=== PATIENT | female | born 1955 | race Caucasian/White ===

== ENCOUNTER 2018-07-15 18:22 | Emergency (ER) | payer OTHER ==
[2018-07-15] MEDS ORDERED: ONDANSETRON 4 MG/2 ML VIAL ONE (18:49)
[2018-07-15] MEDS ORDERED: ONDANSETRON 4 MG/2 ML VIAL IVP ONE (18:49)
--- NOTE | 2018-07-15 18:49 | EDPHY ---
H & P Stated Complaint: R arm deformity Time Seen by Provider: 07/15/18 18:34 HPI/ROS: HPI: This is a 62-year-old female who presents with Chief Complaint: Right arm deformed Location: Right wrist Quality: Injury Duration: 1 hr prior to arrival Signs and Symptoms: No bleeding, no radiation, no numbness, no weakness, no tingling, no incontinence, + decreased range of motion, no swelling, + pain, no fever Timing: Acute Severity: Moderate Context: Patient is right-hand dominant, presents with accidentally falling backwards and landing on her right hand. She reports that she felt immediate pain on the radial side of her right wrist with obvious deformity. She has tried not to move and stable iced it with her belt. Denies LOC/head injury/neck pain/dizziness/nausea/vomiting/amnesia. She was ambulatory at the scene and her witnessed the fall. She was able to hike down the trail and drove her to the emergency room. They are here in [place] visiting from [place], [place]. They are flying back home tomorrow. Modifying Factors: Stabilization Comment: ROS: A comprehensive 10 system review of systems is otherwise negative aside from elements mentioned in the history of present illness. MEDICAL/SURGICAL/SOCIAL HISTORY: Medical history: Generally healthy. Does not take any regular medications. Surgical history: Right knee arthroscopy, parathyroidectomy Social history: , nonsmoker CONSTITUTIONAL: Extremely polite and cooperative elderly white female who appears younger than stated age, awake and alert, no obvious distress HEENT: Atraumatic and normocephalic. NECK: supple, no midline tenderness, flexion 45 degrees, extension 45 degrees, right and left lateral flexion 45 degrees. No meningismus. Cardiovascular: Normal S1/S2, regular rate, regular rhythm, without murmur rub or gallop. PULMONARY/CHEST: Symmetrical and nontender. no crepitus. Clear to auscultation bilaterally. Good air movement. No accessory muscle usage. ABDOMEN: Soft, nondistended, nontender, no ecchymosis. EXTREMITIES: 2/2 pulses, strength 5/5, right WRIST: Radial deformity noted; decreased extension, flexion, radial deviation, ulnar deviation secondary to pain. Able to wiggle all 5 fingers with good capillary refill. DIP/PIP/MCP flexion/extension intact with good light touch sensation. no deformities, no clubbing, no cyanosis or edema. NEUROLOGICAL: no focal neuro deficits. GCS 15. Light touch sensation intact. SKIN: Warm and dry, no erythema. no rash. Source: Patient Exam Limitations: No limitations - Personal History Current Tetanus/Diphtheria Vaccine: Unsure Current Tetanus Diphtheria and Acellular Pertussis (TDAP): Unsure - Medical/Surgical History Hx Asthma: No Hx Chronic Respiratory Disease: No Hx Diabetes: No Hx Cardiac Disease: No Hx Renal Disease: No Hx Cirrhosis: No Hx Alcoholism: No Hx HIV/AIDS: No Hx Splenectomy or Spleen Trauma: No Other PMH: R knee surgery, parathyroidectomy, - Social History Smoking Status: Never smoked Constitutional: Initial Vital Signs Temperature (C) 36.7 C 07/15/18 18:27 Heart Rate 66 07/15/18 18:27 Respiratory Rate 16 07/15/18 18:27 Blood Pressure 148/103 H 07/15/18 18:27 O2 Sat (%) 96 07/15/18 18:27 O2 Delivery Mode Room Air Allergies/Adverse Reactions: No Known Allergies Allergy (Unverified 07/15/18 18:27) Home Medications: Medication Instructions Recorded oxyCODONE/APAP 5/325 [Percocet 1 - 2 tab PO Q4H PRN #20 tab 07/15/18 5/325 (*)] Medical Decision Making - Diagnostics Imaging Results: Imaging Impressions Wrist X-Ray 07/15/18 18:31 Impression: 1. Comminuted, impacted fracture of the distal radius with apex volar angulation. 2. Small avulsion of the dorsal scaphoid. 3. Displaced fracture of the ulnar styloid. Wrist X-Ray 07/15/18 19:01 Impression: Improved alignment after reduction. Procedures: Procedure: Dislocation reduction. The dislocation of the right wrist was reduced using counter traction technique without complications. Post reduction the patient's neurovascular exam is normal. Post reduction x-ray demonstrates reduction of the joint to the anatomic position. The procedure was performed by myself. Procedure: Splint placement. A right sugar-tong Ortho Glass splint was applied by myself and the Emergency Room hearing aide technician. After application of the splint I returned and re-examined the patient. The splint was adequately immobilizing the joint and distal to the splint the patient's circulation and sensation was intact. ED Course/Re-evaluation: X-ray imaging at bedside shows radial displaced fracture. Hematoma block provided. Given IV morphine 4 mg and IV Zofran 4 mg. Reduced at bedside with 1st attempt. Placed in sugar-tong Ortho Glass splint and sling. X-rays provided on disc. Patient was advised to follow up with Orthopedics in the next 3-5 days. She understands that she will require surgery. No signs of neurovascular compromise/tenting of skin/compartment syndrome/ extremities and joints examined above and below area of concern and are neurovascularly intact. This patient was seen under the supervision of my secondary supervising physician. I evaluated care for this patient independently. Discussed this patient with Dr. Ewing. Differential Diagnosis: Differential diagnosis includes but is not limited to radial fracture, ulnar fracture, tendon injury, nerve injury, navicular fracture, scaphoid fracture. - Data Points Medications Given: Discontinued Medications Morphine Sulfate (Morphine) 4 mg IVP EDNOW ONE Stop: 07/15/18 18:50 Last Admin: 07/15/18 18:51 Dose: 4 mg Ondansetron HCl (Zofran) 4 mg IVP EDNOW ONE Stop: 07/15/18 18:50 Last Admin: 07/15/18 18:51 Dose: 4 mg Oxycodone/Acetaminophen (Percocet 5/325) 1 tab PO EDNOW ONE Stop: 07/15/18 19:18 Last Admin: 07/15/18 19:40 Dose: Not Given Departure - Departure Disposition: Home, Routine, Self-Care Clinical Impression: Closed fracture of head of right radius Qualifiers: Encounter type: initial encounter Fracture alignment: displaced Qualified Code( s): S52.121A - Displaced fracture of head of right radius, initial encounter for closed fracture Fracture of right ulnar styloid Qualifiers: Encounter type: sequela Fracture type: closed Fracture alignment: displaced Qualified Code(s): S52.611S - Displaced fracture of right ulna styloid process, sequela Fracture of scaphoid of right wrist Qualifiers: Encounter type: initial encounter Scaphoid bone location: unspecified portion of scaphoid Fracture type: closed Fracture alignment: nondisplaced Qualified Code(s): S62.001A - Unspecified fracture of navicular [scaphoid] bone of right wrist, initial encounter for closed fracture Condition: Good Instructions: Wrist Fracture in Adults (ED), Scaphoid Fracture (ED), ORIF of a Wrist Fracture (DC) Additional Instructions: Keep the splint dry and in place until seen by Orthopedics. Wear the sling while out of bed for comfort. Take Tylenol 650 mg every 4 hours and/or Ibuprofen 600 mg every 8 hours with food as needed for pain. Use Percocet every 6 hours as needed for severe/break through pain. Do not use Tylenol and Percocet concomitantly. Apply ice for 30 minutes at a time; 2-3 times per day for the next 1-2 days. Follow up with Orthopedics in 3-5 days days at which time they will evaluate and discuss surgery. Return to the ER immediately if you experience new or worsening pain, discoloration, numbness, tingling, or any other symptoms that concern you. Referrals: JULISA ABEL [Other] - As per Instructions Julian Valdovinos MD [Medical Doctor] - As per Instructions Prescriptions: oxyCODONE/APAP 5/325 [Percocet 5/325 (*)] 1 - 2 tab PO Q4H PRN #20 tab PRN Reason: Pain, Severe
[2018-07-15] MEDS ORDERED: OXYCODONE/APAP 5/325 TAB PO ONE (19:17)
[2018-07-15 19:42] VITALS: BP 122/74
== END 2018-07-15 19:44 | disposition home or self-care (01) ==
DX: S52.501A Unspecified fracture of the lower end of right radius, initial encounter for closed fracture (principal); S52.611A Displaced fracture of right ulna styloid process, initial encounter for closed fracture; S62.001A Unspecified fracture of navicular [scaphoid] bone of right wrist, initial encounter for closed fracture; W01.198A Fall on same level from slipping, tripping and stumbling with subsequent striking against other object, initial encounter; Y93.01 Activity, walking, marching and hiking; Y92.828 Other wilderness area as the place of occurrence of the external cause
CPT/HCPCS: 96374; J2270; J2405

== ENCOUNTER 2018-07-15 23:16 | Emergency (ER) | payer OTHER ==
[2018-07-15] MEDS ORDERED: NS 1,000 ML IV ONE ×2 (23:27)
[2018-07-15 23:38] LABS: PLATELET COUNT 241 10^3/uL (150-400)
--- NOTE | 2018-07-15 23:40 | EDPHY ---
H & P Stated Complaint: Seen earlier, cast put on, increasing numbness in R arm, dizziness, lighthe Source: Patient, Family Exam Limitations: No limitations - Personal History Current Tetanus Diphtheria and Acellular Pertussis (TDAP): Yes - Medical/Surgical History Hx Asthma: No Hx Chronic Respiratory Disease: No Hx Diabetes: No Hx Cardiac Disease: No Hx Renal Disease: No Hx Cirrhosis: No Hx Alcoholism: No Hx HIV/AIDS: No Hx Splenectomy or Spleen Trauma: No Other PMH: R knee surgery, parathyroidectomy, R radial fracture - Social History Smoking Status: Never smoked Time Seen by Provider: 07/15/18 23:29 HPI/ROS: HPI: This is a 8-year-old female who presents with Chief Complaint: Seen earlier, cast put on, increasing numbness in R arm, dizziness, lighthe Location: Right 2nd 3rd and 4th finger Quality: Numbness and tingling Duration: Several hours Signs and Symptoms: no fever, no nausea, no vomiting, no photophobia, no noise sensitivity, no neck stiffness, no ear pain, no tinnitus, no nasal congestion, no sinus pressure, no weakness, no radiation, no aura Timing: Gradual onset Severity: [id number] Context: Patient was seen in this emergency room earlier and diagnosed with distal radial comminuted fracture that needed to be reduced along with avulsion of the scaphoid fracture, and ulna styloid fracture. Patient was appropriately reduced with significant improvement in alignment and placed in a splint. Patient is very reluctant to take pain medication has been only taking Tylenol and ibuprofen. She became concerned she started to feel some tingling in her 2nd 3rd and 4th fingers. She denies any decreased range of motion in her fingers. They are scheduled to fly out to [facility] [place] tomorrow. at bedside is extremely concerned and worried. While in the ER registration, patient began to feel dizzy and become diaphoretic and had a near syncopal episode per the triage nurse. Modifying Factors: Tylenol and ibuprofen Comment: ROS: A comprehensive 10 system review of systems is otherwise negative aside from elements mentioned in the history of present illness. MEDICAL/SURGICAL/SOCIAL HISTORY: Medical history: Right radial fracture Surgical history: R knee surgery, parathyroidectomy Social history: . Nonsmoker. Family history noncontributory. CONSTITUTIONAL: Pale, diaphoretic, anxious, elderly white female, awake and alert, no obvious distress HEENT: Atraumatic and normocephalic, PERRL, EOMI. Nares patent; no rhinorrhea; no nasal mucosal edema. Tympanic membranes clear. Oropharynx clear, no exudate and moist pink mucosa. Airway patent. No lymphadenopathy. No meningismus. Cardiovascular: Normal S1/S2, regular rate, regular rhythm, without murmur rub or gallop. PULMONARY/CHEST: Symmetrical and nontender. Clear to auscultation bilaterally. Good air movement. No accessory muscle usage. ABDOMEN: Soft, nondistended, nontender, no rebound, no guarding, no peritoneal signs, no masses or organomegaly. No CVAT. EXTREMITIES: 2/2 pulses, strength 5/5, right wrist in sugar-tong splint; able to move all fingers without difficulty with good capillary refill. Strong radial pulse. no deformities, no clubbing, no cyanosis or edema. NEUROLOGICAL: no focal neuro deficits. GCS 15. SKIN: Warm and dry, no erythema. no rash. Good capillary refill. (Maira Pérez) Constitutional: Initial Vital Signs Temperature (C) 36.8 C 07/15/18 23:18 Heart Rate 63 07/15/18 23:18 Respiratory Rate 18 07/15/18 23:18 Blood Pressure 87/63 L 07/15/18 23:18 O2 Sat (%) 95 07/15/18 23:18 O2 Delivery Mode Room Air Allergies/Adverse Reactions: No Known Allergies Allergy (Unverified 07/15/18 23:18) Home Medications: Medication Instructions Recorded oxyCODONE/APAP 5/325 [Percocet 1 - 2 tab PO Q4H PRN #20 tab 07/15/18 5/325 (*)] Medical Decision Making ED Course/Re-evaluation: 0130AM: Patient ambulated well throughout the emergency room without any difficulty. Patient is re-evaluated. Resting comfortably. Blood work reviewed unremarkable. Negative troponin. EKG unremarkable. Patient has been resplinted and is comfortable. She feels well to go home. Recommend close follow-up with Orthopedics. Return precautions discussed with her and her . (Silvio Butler) Under wrapped splint with good pulses and good capillary refill. Placed on rat trapper and obtained IV access. Given 2 L normal saline, EKG and laboratory studies ordered. EKG per attending shows no acute ischemic changes, no arrhythmias. Reassured patient and that she has had a radial fracture, ulnar styloid fracture, avulsion skull left foot fracture and that some tingling in the fingers is to be expected. 0000: End of shift. Signed over to Dr. Butler pending laboratory studies and final disposition. No signs of neurovascular compromise/tenting of skin/compartment syndrome/ extremities and joints examined above and below area of concern and are neurovascularly intact. This patient was seen under the supervision of my secondary supervising physician. I evaluated care for this patient independently. Discussed this patient with Dr. Butler. (Maira Pérez) Differential Diagnosis: Differential diagnosis includes but is not limited to radial fracture, ulnar fracture, nerve injury, tendon injury. (Maira Pérez) - Data Points Laboratory Results: Laboratory Results 07/15/18 23:32 07/15/18 23:32 Medications Given: Discontinued Medications Sodium Chloride (Ns) 1,000 mls @ 0 mls/hr IV ONCE ONE; Wide Open PRN Reason: Protocol Stop: 07/15/18 23:28 Last Admin: 07/15/18 23:35 Dose: 1,000 mls Sodium Chloride (Ns) 1,000 mls @ 0 mls/hr IV ONCE ONE; Wide Open PRN Reason: Protocol Stop: 07/15/18 23:28 Last Admin: 07/15/18 23:32 Dose: 1,000 mls Ondansetron HCl (Zofran) 4 mg IVP EDNOW ONE Stop: 07/16/18 01:19 Last Admin: 07/16/18 01:19 Dose: 4 mg Ondansetron HCl (Zofran Odt 4 Mg Prepack#2) 1 btl TAKEHOME EDNOW ONE Stop: 07/16/18 01:35 Last Admin: 07/16/18 01:36 Dose: 1 btl Departure - Departure Disposition: Home, Routine, Self-Care Clinical Impression: Closed fracture of right distal radius Qualifiers: Encounter type: initial encounter Fracture morphology: unspecified fracture morphology Qualified Code(s): S52.501A - Unspecified fracture of the lower end of right radius, initial encounter for closed fracture Fracture of scaphoid of right wrist Qualifiers: Encounter type: initial encounter Scaphoid bone location: unspecified portion of scaphoid Fracture type: closed Fracture alignment: displaced Qualified Code(s ): S62.001A - Unspecified fracture of navicular [scaphoid] bone of right wrist, initial encounter for closed fracture Fracture of right ulnar styloid Qualifiers: Encounter type: initial encounter Fracture type: closed Fracture alignment: displaced Qualified Code(s): S52.611A - Displaced fracture of right ulna styloid process, initial encounter for closed fracture Instructions: Ondansetron (By mouth), Hand Fracture (ED), Wrist Fracture in Adults (ED) Referrals: JULISA ABEL [Other] - As per Instructions Hema Estrella MD [Medical Doctor] - As per Instructions
[2018-07-16] MEDS ORDERED: ONDANSETRON 4 MG/2 ML VIAL ONE (01:16)
[2018-07-16] MEDS ORDERED: ONDANSETRON 4 MG/2 ML VIAL IVP ONE (01:18)
[2018-07-16 01:20] VITALS: BP 114/73
[2018-07-16] MEDS ORDERED: ONDANSETRON 4MG PREPACK#2 BTL TAKEHOME ONE ×2 (01:33→01:34)
--- NOTE | 2018-07-16 11:18 | CPEKG ---
Test Reason : OPEN Blood Pressure : / mmHG Vent. Rate : 051 BPM Atrial Rate : 051 BPM P-R Int : 170 ms QRS Dur : 105 ms QT Int : 466 ms P-R-T Axes : 054 072 061 degrees QTc Int : 430 ms Sinus rhythm Confirmed by Loren Quan ([id number]) on 07/16/2018 11:18:01 AM Referred By: Confirmed By:Loren Quan
== END 2018-07-16 01:41 | disposition home or self-care (01) ==
DX: R20.2 Paresthesia of skin (principal); R55 Syncope and collapse; E86.9 Volume depletion, unspecified; S52.501A Unspecified fracture of the lower end of right radius, initial encounter for closed fracture; S62.001A Unspecified fracture of navicular [scaphoid] bone of right wrist, initial encounter for closed fracture; S52.611A Displaced fracture of right ulna styloid process, initial encounter for closed fracture; Z87.81 Personal history of (healed) traumatic fracture
CPT/HCPCS: 96374; J2405